=== PATIENT | male | born 1950 | race Caucasian/White ===

== ENCOUNTER 2022-02-27 18:01 | Inpatient (IN) | payer MEDICARE, OTHER ==
[~2022-02-27] VITALS: Ht 180.3 cm; Wt 89.2 kg
[2022-02-27 19:23] LABS: BASOPHILS ABSOLUTE AUTO 0.08 K/mm3 (0.00-0.23); BASOPHILS PERCENT AUTO 1 % (0-2); EOSINOPHILS ABSOLUTE AUTO 0.33 K/mm3 (0.00-0.68); EOSINOPHILS PERCENT AUTO 4 % (0-6); Hematocrit 31.3 % (37.0-53.0); Hemoglobin 10.1 g/dL (13.5-17.5); IMMATURE GRAN ABSOLUTE AUTO 0.04 K/mm3 (0.00-0.10); IMMATURE GRAN PERCENT AUTO 1 % (0-1); LYMPHOCYTES ABSOLUTE AUTO 1.24 K/mm3 (0.84-5.20); LYMPHOCYTES PERCENT AUTO 15 % (21-46); MONOCYTES ABSOLUTE AUTO 0.91 K/mm3 (0.16-1.47); MONOCYTES PERCENT AUTO 11 % (4-13); Mean Corpuscular HGB Conc 32.3 g/dL (31.5-36.5); Mean Corpuscular Volume 93 fL (80-100); Mean Platelet Volume 10.7 fL (9.1-12.4); NEUTROPHILS ABSOLUTE AUTO 5.59 K/mm3 (1.96-9.15); NEUTROPHILS PERCENT AUTO 68 % (41-73); Platelet Count 293 K/mm3 (150-400); RDW Coefficient Variation 12.4 % (11.7-14.2); RDW Standard Deviation 42.3 fL (35.1-46.3); Red Blood Cell Count 3.37 M/mm3 (4.30-5.90); White Blood Cell Count 8.19 K/mm3 (4.00-11.30)
[2022-02-27 20:04] LABS: Albumin, Blood 3.5 g/dL (3.4-5.0); Albumin/Globulin Ratio 0.7 (0.8-1.8); Bilirubin, Total 0.4 mg/dL (0.1-1.0); Bun/Creatinine Ratio 13.1 (12.0-20.0); Calcium, Blood 9.4 mg/dL (8.5-10.1); Creatinine, Blood 3.82 mg/dL (0.60-1.20); Globulin, Blood 4.8 g/dL (2.2-4.0); Total Protein, Blood 8.3 g/dL (6.4-8.2)
[2022-02-27 23:10] LABS: Source, Urine Foley catheter
[2022-02-27 23:13] LABS: Bilirubin, Urine Neg (Neg); Blood, Urine 4+ (Neg); Glucose Qualitative, Urine Neg (Neg); Ketones, Urine Neg (Neg); Leukocyte Esterase, Urine 2+ (Neg); Nitrite, Urine Neg (Neg); Protein, Urine Neg (Neg); Urobilinogen, Urine NORM (Normal)
[2022-02-27 23:29] LABS: Appearance, Urine Clear (Clear); Color, Urine Yellow (P-Yellow)
[2022-02-27 23:31] LABS: Bacteria Rare /hpf; Squamous Epithelial Cells Not Seen /hpf (Few)
[2022-02-27] MEDS ORDERED: FLOMAX0.4 MG PO (23:36)
[2022-02-27] MEDS ORDERED: FINA5 PO (23:37)
[2022-02-28 05:41] LABS: BASOPHILS ABSOLUTE AUTO 0.04 K/mm3 (0.00-0.23); BASOPHILS PERCENT AUTO 1 % (0-2); EOSINOPHILS ABSOLUTE AUTO 0.27 K/mm3 (0.00-0.68); EOSINOPHILS PERCENT AUTO 4 % (0-6); Hematocrit 26.9 % (37.0-53.0); Hemoglobin 8.9 g/dL (13.5-17.5); IMMATURE GRAN ABSOLUTE AUTO 0.03 K/mm3 (0.00-0.10); IMMATURE GRAN PERCENT AUTO 0 % (0-1); LYMPHOCYTES PERCENT AUTO 17 % (21-46); MONOCYTES ABSOLUTE AUTO 0.94 K/mm3 (0.16-1.47); MONOCYTES PERCENT AUTO 13 % (4-13); Mean Corpuscular HGB 30.4 pg (26.0-34.0); Mean Corpuscular HGB Conc 33.1 g/dL (31.5-36.5); Mean Corpuscular Volume 92 fL (80-100); Mean Platelet Volume 10.8 fL (9.1-12.4); NEUTROPHILS ABSOLUTE AUTO 4.55 K/mm3 (1.96-9.15); NEUTROPHILS PERCENT AUTO 65 % (41-73); Platelet Count 256 K/mm3 (150-400); RDW Coefficient Variation 12.4 % (11.7-14.2); RDW Standard Deviation 41.7 fL (35.1-46.3); Red Blood Cell Count 2.93 M/mm3 (4.30-5.90); White Blood Cell Count 7.03 K/mm3 (4.00-11.30)
[2022-02-28 06:19] LABS: Albumin/Globulin Ratio 0.8 (0.8-1.8); Bilirubin, Total 0.4 mg/dL (0.1-1.0); Creatinine, Blood 3.53 mg/dL (0.60-1.20); Globulin, Blood 3.7 g/dL (2.2-4.0); Potassium, Blood 4.5 mmol/L (3.5-5.5); Total Protein, Blood 6.7 g/dL (6.4-8.2)
--- NOTE | 2022-02-28 06:29 | NUR ---
SHIFT SUMMARY ADMITTED LAST NIGHT FOR N/V & 8/10 ABD PAIN. IN ER THEY PLACED COUDE ALVAREZ, R/T URINARY RETENTION SHOWN ON ULTRASOUND. AOX4. BP ELEVATED UPON ARRIVING TO FLOOR 194/79, RECHECKED MANUALLY & BP @174/82. THIS AM BP 160'S SYSTOLIC. REST OF VITALS STABLE. TELE NSR HR 66. REPORTS STILL HAVING MILD ACIDIC, BURNING DISCOMFORT AT XIPHOID PROCESS. DENIES ANY N/V. ALVAREZ URINE OUTPUT HAS BEEN DARK CRANBERRY COLOR c SEDIMENT & A FEW SMALL CLOTS SINCE PT GOT UP TO USE RESTROOM, BEFORE URINE WAS YELLOW. GETS DIZZY UPON STANDING, 1 ASSIST. CALL LIGHT IN REACH & PT ABLE TO MAKE NEEDS KNOWN.
--- NOTE | 2022-02-28 18:15 | NUR ---
PT IS A/OX4, PLEASANT AND COOPERATIVE, UP IND IN HIS ROOM. THE PT HAS URINARY CATHETER IN PLACE AND SECURE URINE WAS CRANBERRY RED THIS AM AND THIS AFTERNOON IS NOW YELLOW IN COLOR. THE PT WAS MEDICATED FOR CHRONIC NECK PAIN AND HEADACHE X2 SOR FAR TODAY. PT DENIED ANY N/V. PT APPEARS TO BE BREATHING EASILY ON RA. CALL LIGHT IN REACH.
--- NOTE | 2022-02-28 18:18 | NUR ---
AM ASSESSMENT I AGREE WITH AND WAS PRESENT DURING THE STUDENT RN AM ASSESSMENT, AND AGREE WITH THE STUDENT DOCUMENTATION
--- NOTE | 2022-03-01 04:24 | NUR ---
SHIFT SUMMARY AOX4. VSS. TELE SINUSBRADY, HR 48-58. HELD HS METOPROLOL R/T BRADICARDIA. REPORTS CHRONIC 5/10 PAIN IN NECK, DENIED NEED FOR ANY MEDICATION. DENIES N/V OR DYSPNEA. ALVAREZ PATENT & DRAINING YELLOW URINE c SMALL AMOUNT RED SEDIMENT. CALL LIGHT IN REACH & PT ABLE TO MAKE NEEDS KNOWN. WCTM.
[2022-03-01 06:26] LABS: Bun/Creatinine Ratio 12.2 (12.0-20.0); Calcium, Blood 8.8 mg/dL (8.5-10.1); Creatinine, Blood 2.7 mg/dL (0.60-1.20); Potassium, Blood 3.9 mmol/L (3.5-5.5)
[2022-03-01 07:55] LABS: Hematocrit 28.9 % (37.0-53.0); Hemoglobin 9.1 g/dL (13.5-17.5)
--- NOTE | 2022-03-01 16:22 | NUR ---
SHIFT SUMMERY PT A/O X4. CALM AND COOPERATIVE WITH CARE. IND IN ROOM. ALVAREZ IN PLACE, PATENT AND DRAINING YELLOW URINE. DENIED PAIN AND N/V. CASE MANAGEMENT IN TO SEE PT THIS PM AND TO ADDRESS DISCHARGE NEEDS. PLAN TO DISCHARGE TOMORROW WITH ALVAREZ IN PLACE AND TO FOLLOW UP WITH UROLOGY. CALL LIGHT IN REACH.
--- NOTE | 2022-03-01 18:00 | NUR ---
AM ASSESSMENT I WAS PRESENT DURING AND AGREE WITH THE PATIENTS AM ASSESSMENT AND DOCUMENTATION ON THIS PATIENT T/O THE DAY
[2022-03-02 05:26] LABS: Bun/Creatinine Ratio 11.8 (12.0-20.0); Calcium, Blood 9.2 mg/dL (8.5-10.1); Creatinine, Blood 2.37 mg/dL (0.60-1.20)
[2022-03-02] MEDS ORDERED: AMLO5 PO (16:33)
[2022-03-02] MEDS ORDERED: METO25 PO (16:33)
[2022-03-02] MEDS ORDERED: ACET325 PO (16:33)
[2022-03-02] MEDS ORDERED: TRAM50 PO (16:34)
--- NOTE | 2022-03-02 17:29 | NUR ---
PT DISCHARGED THE PT VERBALIZED UNDERSTANDING OF THE DC INSTRUCTIONS. THE PT WAS EDUCATED ON CATHETER CARE AND A LEG BAG WAS APPLIED PRIOR TO DISCHARGE, EXTRA SUPPLIES GIVEN TO THE PT. [facility] [place] [facility]. FOLLOW UP APPOINTMENTS WERE ESTABLISHED FOR THE PT PRIOR TO DISCHARGE. THE PT WAS TRANSFERED VIA WHEELCHAIR ACCOMPANIED BY THE LINE UP EXAMINER AND AND A FRIEND
--- NOTE | 2022-03-03 02:37 | NUR ---
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 THAT IS WHY I WAS IN THIS CHART.
== END 2022-03-02 17:17 | disposition home health service (06) | DRG 684 ==
LOC: ER 18:01 → MEDS 21:38
PROVIDERS: Internal Medicine; Physician Assistant; ADMIT Internal Medicine
DX: N17.9 Acute kidney failure, unspecified (principal); N13.30 Unspecified hydronephrosis; N32.89 Other specified disorders of bladder; N40.1 Benign prostatic hyperplasia with lower urinary tract symptoms; Z66 Do not resuscitate; C61 Malignant neoplasm of prostate; R33.8 Other retention of urine; R33.9 Retention of urine, unspecified; I12.9 Hypertensive chronic kidney disease with stage 1 through stage 4 chronic kidney disease, or unspecified chronic kidney disease; N18.9 Chronic kidney disease, unspecified; R31.9 Hematuria, unspecified; Z79.899 Other long term (current) drug therapy
CPT/HCPCS: 36415; 51702; 74176; 76705; 80048; 80053; 81001; 83690; 83880; 84153; 85014; 85018; 85025; 87086; 96374; 96375; 96376; 99285-25; A9270; G0378; J0780; J2405; J7030